=== PATIENT | female | born 1970 | race Caucasian/White ===

== ENCOUNTER 2016-12-23 08:00 | Outpatient (CLI) | payer OTHER | END 2016-12-23 08:01 | disposition home or self-care (01) | DX: Z12.31 Encounter for screening mammogram for malignant neoplasm of breast (principal) ==

== ENCOUNTER → 2017-03-23 | Outpatient (CLI) | payer OTHER ==
[2017-03-23 18:55] LABS: HEMOGLOBIN A1C 0.51 g/dL
[2017-03-23 19:02] LABS: CHOL/HDL RATIO 2.4 (<4.4); CHOLESTEROL 163 mg/dL; GLUCOSE 98 mg/dL (70-100); HDL CHOLESTEROL 68 mg/dL; LDL/HDL RATIO 1.1 (<4.4); TRIGLYCERIDES 94 mg/dL; VLDL CHOLESTEROL 19 mg/dL
== END ==
LOC: LAB.F 08:00
PROVIDERS: ATTEND Family Medicine
DX: Z00.00 Encounter for general adult medical examination without abnormal findings (principal); Z13.1 Encounter for screening for diabetes mellitus; R53.83 Other fatigue
CPT/HCPCS: 36415; 80061; 81599; 82947; 83036; 84443